=== PATIENT | male | born 1990 | race Caucasian/White ===

== ENCOUNTER 2018-01-08 11:37 | Emergency (ER) | payer OTHER, SELFPAY ==
[2018-01-08 11:38] VITALS: BP 128/76; PULSE 72; RESP 18; TEMP 36.4; O2SAT 97; BMI 20.5
--- NOTE | 2018-01-08 12:01 | ED.VISSUMM ---
- ER Visit Summary Date of Service: 01/08/18 Chief Complaint: Dental pain History of Present Illness: The patient is a 27 M who reports he went to [facility] approximately 6 weeks ago. That visit because proximally $400 and he does not have the money to go again. He reports that he has had pain in his left maxillary and mandibular teeth that began approximately 1 month ago. Pain has become unbearable today. It is a throbbing pain that is 10 at 10 worsening a 10 currently. States initially it was relieved by ice, but today that ice is making it much worse. Is worsened by eating. He denies any fever or other complaints. Physical Examination: Vitals: Stable. Afebrile. Mouth: No trismus. No edema of the floor of the mouth. No focal abscess. He has mild pain with percussion of his maxillary and mandibular canines, both premolars, and both molars. There are multiple caries. There is no swelling. General: A&O x 3. NAD. Cardiovascular exam: Regular rate and rhythm, no murmur, rub or gallop. Respiratory exam: Clear to auscultation bilaterally. No wheezes or stridor. Abdominal exam: Soft, nontender, nondistended, normal bowel sounds. No peritoneal signs. Extremity: No clubbing, cyanosis, or edema. Emergency Department Course and Treatment: An [facility] report was obtained which shows he has had no prescriptions for opiates in the past year. He is given naproxen, [place], and penicillin here. Treatment Plan: Patient will be discharged in the above medications instructed to follow-up the dentist as soon as possible. He is given a sheet of the local dentist in the area and there insurance acceptance. Disposition: To home in improved and stable condition. Impression: 1. Dental pain. This note was generated with [employer] dictation software. It may contain incorrect words, spelling, and punctuation that were not noted in review of the chart prior to signing ED Disposition - Plan for ED Patient: Disposition: Home or Assisted Living Chief Complaint: Dental Instructions: ED Tooth Pain Prescriptions: Hydrocodone/Acetaminophen [[place] 5-325 Tablet] 1 - 2 each PO 4X/DAY PRN PRN 3 Days #12 tablet PRN Reason: Pain Naproxen [Naprosyn] 500 mg PO BID #14 tablet Penicillin V Potassium 500 mg PO 4X/DAY #40 tablet Referrals: Dentist,Your [STAFF PHYSICIAN] - As soon as possible
[2018-01-08] MEDS: HYDROcodone Bitartrate/Apap 5/325 Tablet PO (12:19)
[2018-01-08] MEDS: Penicillin Vk 250 MG Tablet 500 MG PO (12:19)
[2018-01-08] MEDS: Naproxen 250 MG Tablet 500 MG PO (12:19)
[2018-01-08 12:20] VITALS: PULSE 76; RESP 16; O2SAT 98
== END 2018-01-08 12:22 | disposition home or self-care (01) ==
LOC: ED 12:14
PROVIDERS: Emergency Provider Emergency Medicine
DX: K08.89 Other specified disorders of teeth and supporting structures (principal); F17.200 Nicotine dependence, unspecified, uncomplicated
CPT/HCPCS: 99282